=== PATIENT | female | born 1970 | race Caucasian/White ===

== ENCOUNTER 2018-05-27 18:33 | Emergency (ER) | payer MEDICAID, OTHER ==
[~2018-05-27] VITALS: Ht 149.9 cm; Wt 79.4 kg
[~2018-05-27 18:33] MED LIST: ACET325S31
[2018-05-27 19:09] VITALS: BP 130/66
--- NOTE | 2018-05-27 19:11 | NUR ---
TO LOBBY A/W BED, AMBULATORY, VSS, SAO2 98%, ERMD NOTED
--- NOTE | 2018-05-27 19:45 | NUR ---
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
--- NOTE | 2018-05-27 20:00 | NUR ---
PATIENT PRESENTS TO ED WITH C/O SORE THROAT X 2-3 MONTHS. PATIENT DENIES ANY SOB/CP NO DIFFICULTY EATING OR DRINKING, OR DIFFICULTY SPEAKING, AIRWAY IS PATENT . PT DENIES N/V/D; SKIN IS PINK/WARM/DRY; AAOX4 WITH EVEN AND STEADY GAIT; LUNGS CLEAR BL; HR EVEN AND REGULAR; PT DENIES ANY FEVER, CP, SOB, OR COUGH AT THIS TIME; PATIENT STATES PAIN OF 0/10 AT THIS TIME; VSS; PATIENT POSITIONED FOR COMFORT; HOB ELEVATED; BEDRAILS UP X2; BED DOWN. ER MD MADE AWARE OF PT STATUS.
[2018-05-27] MEDS ORDERED: KETOROLAC 60 MG/2 ML VIAL IM ONE (20:45)
[2018-05-27 21:06] VITALS: BP 122/72
--- NOTE | 2018-05-27 21:06 | NUR ---
Patient discharged with v/s stable. Written and verbal after care instructions given and explained. Patient alert, oriented and verbalized understanding of instructions. Ambulatory with steady gait. All questions addressed prior to discharge. ID band removed. Patient advised to follow up with PMD. Rx of ALBUTEROL, PREDNISONE, MOTRIN given. Patient educated on indication of medication including possible reaction and side effects. Opportunity to ask questions provided and answered.
== END 2018-05-27 21:07 | disposition home or self-care (01) ==
LOC: MED 18:33
DX: J02.9 Acute pharyngitis, unspecified (principal); R50.9 Fever, unspecified; R11.2 Nausea with vomiting, unspecified; J45.909 Unspecified asthma, uncomplicated; F17.200 Nicotine dependence, unspecified, uncomplicated; Z79.1 Long term (current) use of non-steroidal anti-inflammatories (NSAID)
CPT/HCPCS: 71046; 96372; 99283; J1885